=== PATIENT | female | born 1935 | race American Indian/Alaskan Native ===

== ENCOUNTER 2016-09-08 11:25 | Emergency (ER) | payer MEDICARE ==
[2016-09-08 12:05] LABS: Basophils % (Auto) 0.4 % (0.0-1.8); Eosinophils % (Auto) 0.3 % (0.0-4.3); Hematocrit 42.5 % (30.3-42.9); Hemoglobin 13.9 gm/dl (10.1-14.3); Mean Corpuscular HGB Conc 33 % (30-34); Mean Corpuscular Hemoglobin 32 pg (28-32); Mean Corpuscular Volume 96 fl (79-97); Platelet Count 272 K/mm3 (140-440); Red Blood Count 4.41 M/mm3 (3.65-5.03); Red Cell Distribution Width 13.3 % (13.2-15.2); White Blood Count 12.9 K/mm3 (4.5-11.0)
--- NOTE | 2016-09-08 12:10 | Cat Scan Report ---
CT HEAD WITHOUT CONTRAST: HISTORY: Stroke. Technique: Sequential CT images without contrast. Hyperdense left MCA is suspected consistent with thrombosis. The remaining cerebral vessels are grossly normal. The brain parenchyma is within normal limits. There is no evidence for hemorrhage, mass or large area of acute ischemia at this time. No chronic infarct. Ventricular size is within normal limits. The posterior fossa and contents are unremarkable. The mastoid air cells and visualized portions of the sinuses are normal. IMPRESSION: Hyperdense left MCA suggesting left MCA thrombosis. Please correlate with the patient's clinical presentation. No evidence for hemorrhage. These findings were discussed with Dr. Palmer in the emergency department at 1205 hrs.
[2016-09-08 12:11] LABS: INR 1.05 (0.87-1.13)
[2016-09-08 12:16] LABS: Partial Thromboplastin Time 24.6 Sec. (24.2-36.6)
--- NOTE | 2016-09-08 12:26 | Emergency Department Report ---
ED General Adult HPI - General Chief complaint: Neuro Symptoms/Deficit Stated complaint: STROKE Time Seen by Provider: 09/08/16 11:58 Source: EMS Mode of arrival: Stretcher Limitations: Altered Mental Status - Related Data Allergies Allergy/AdvReac Type Severity Reaction Status Date / Time Penicillins Allergy Rash Verified 09/08/16 11:32 ED Review of Systems ROS: Stated complaint: STROKE Other details as noted in HPI ED Past Medical Hx - Past Medical History Hx Hypertension: Yes - Surgical History Hx Pacemaker: Yes - Social History Smoking Status: Unknown if ever smoked Substance Use Type: None ED Physical Exam - General Limitations: Altered Mental Status ED Course Vital Signs 09/08/16 12:00 Pulse Rate 100 H Respiratory 20 Rate Blood Pressure 178/75 [Right] O2 Sat by Pulse 100 Oximetry ED Medical Decision Making - Lab Data Result diagrams: 09/08/16 11:39 Laboratory Results - last 24 hr 09/08/16 09/08/16 11:39 11:39 WBC 12.9 H RBC 4.41 Hgb 13.9 Hct 42.5 MCV 96 MCH 32 MCHC 33 RDW 13.3 Plt Count 272 Lymph % (Auto) 7.9 L [place] % (Auto) 4.8 Eos % (Auto) 0.3 Baso % (Auto) 0.4 Lymph # 1.0 L [place] # 0.6 Eos # 0.0 Baso # 0.1 Seg Neutrophils % 86.6 H Seg Neutrophils # 11.2 H PT 13.6 INR 1.05 APTT 24.6 Critical care attestation.: If time is entered above; I have spent that time in minutes in the direct care of this critically ill patient, excluding procedure time. ED Disposition Condition: Stable Referrals: PRIMARY CARE [Primary Care Provider] - 3-5 Days
--- NOTE | 2016-09-08 12:34 | Admit Criteria Form ---
Admission Criteria Documentation: STROKE: ISCHEMIC Clinical Indications for Admission to Inpatient Care (Place 'X' for any and all applicable criteria): Admission is indicated for ANY ONE of the following(1)(2)(3)(4): [X ]I. Acute stroke Extended stay beyond goal length of stay may be needed for(1)(2) [ ]a) Major deficit or clinical deterioration [ ]b) Hospital-acquired infection (eg, urinary tract infection, pneumonia) [ ]c) Embolic cause of stroke [ ]d) Venous thromboembolism(9) [ ]e) Seizures [ ]f) Bleeding (eg, cerebral) [ ]g) Increased intracranial pressure [ ]h) Comorbidities [ ]i) Surgical intervention The original [facility] content created by [employer] has been revised. The portions of the content which have been revised are identified through the use of italic text or in bold, and [facility] has neither reviewed nor approved the modified material. All other unmodified content is copyright [facility] [place] [place] [facility] by [employer]. Please see references footnoted in the original [facility] [place] [place] [employer] edition 2016
--- NOTE | 2016-09-08 12:38 | Emergency Department Report ---
ED Neuro Deficit HPI - General Chief Complaint: Neuro Symptoms/Deficit Stated Complaint: STROKE Time Seen by Provider: 09/08/16 11:58 Source: EMS Mode of arrival: Stretcher Limitations: Altered Mental Status - History of Present Illness Initial Comments: Patient's last known well time was 11 PM last night when she was able to speak clearly and walk unassisted. At about 10:00 this morning the patient was unable to get out of bed. She was able to tell the family that she did not want to go to the hospital. By 10:30 the family apparently noted that she was unable to move her right side when she attempted to get out of bed and fell. Family feels that likely she was weak in the right side since she woke up this morning. Paramedics found the patient to have a blood pressure of 180/120 in the field. She was transported for evaluation of stroke symptoms. According to the family she had no specific complaint. -: During the night Location: speech, right face, right arm, right leg Presenting Symptoms: Present: Weak/Paralyzed One Side History of same: No Place: home Severity: severe Quality: weak Improves With: none Worsens With: none On Anticoagulants: No Context: other Associated Symptoms: other (unable to communicate unable to communicate) Treatments Prior to Arrival: none - Related Data Home Medications: Home Medications Medication Instructions Recorded Confirmed Last Taken Carvedilol [Coreg] 3.125 mg PO BID 09/08/16 09/08/16 09/07/16 Furosemide [Lasix] 20 mg PO BID 09/08/16 09/08/16 09/07/16 Levothyroxine [Synthroid] 75 mcg PO QAM 09/08/16 09/08/16 09/07/16 Lisinopril [Zestril TAB] 10 mg PO QDAY 09/08/16 09/08/16 09/07/16 Multivit-Min/Iron Fum/Folic AC 1 each PO DAILY 09/08/16 09/08/16 09/07/16 [[id number]-Bmiyxfn-Qzjizucp Tablet] Potassium Chloride [K-Dur] 20 meq PO QDAY 09/08/16 09/08/16 09/07/16 Allergies/Adverse Reactions: Allergies Allergy/AdvReac Type Severity Reaction Status Date / Time Penicillins Allergy Rash Verified 09/08/16 11:32 ED Review of Systems ROS: Stated complaint: STROKE Other details as noted in HPI Comment: Unobtainable due to pts medical conditions ED Past Medical Hx - Past Medical History Hx Hypertension: Yes - Surgical History Hx Pacemaker: Yes - Social History Smoking Status: Unknown if ever smoked Substance Use Type: None - Medications Home Medications: Home Medications Medication Instructions Recorded Confirmed Last Taken Type Carvedilol [Coreg] 3.125 mg PO BID 09/08/16 09/08/16 09/07/16 History Furosemide [Lasix] 20 mg PO BID 09/08/16 09/08/16 09/07/16 History Levothyroxine [Synthroid] 75 mcg PO QAM 09/08/16 09/08/16 09/07/16 History Lisinopril [Zestril TAB] 10 mg PO QDAY 09/08/16 09/08/16 09/07/16 History Multivit-Min/Iron Fum/Folic AC 1 each PO DAILY 09/08/16 09/08/16 09/07/16 History [Zelrq-[id number]-Zofcshxc Tablet] Potassium Chloride [K-Dur] 20 meq PO QDAY 09/08/16 09/08/16 09/07/16 History ED Neuro Physical Exam - General Limitations: Language Barrier, Altered Mental Status General appearance: lethargic Suspected Stroke: Yes - Head Head exam: Present: atraumatic - Eye Eye exam: Present: PERRL, other (there might be a slight left orbital ecchymosis which does not appear to be acute). Absent: EOMI (patient his head is unable to look fully to the right) - ENT ENT exam: Present: normal exam - Neck Neck exam: Present: normal inspection. Absent: tenderness, meningismus - Respiratory Respiratory exam: Present: normal lung sounds bilaterally. Absent: respiratory distress - Cardiovascular Cardiovascular Exam: Present: regular rate, normal rhythm. Absent: systolic murmur, diastolic murmur, rubs, gallop - GI/Abdominal GI/Abdominal exam: Present: soft, normal bowel sounds. Absent: distended, tenderness, guarding, rebound, rigid - Extremities Exam Extremities exam: Present: normal inspection - Back Exam Back exam: Present: normal inspection - Neurological Exam Neurological exam: Present: motor sensory deficit. Absent: CN II-XII intact - NIHSS Assessment Interval: Baseline 1a. Level of Consciousness: not alert, arousable 1b. LOC Questions: answers no questions correctly 1c. LOC Commands: performs no tasks correctly 2. Best Gaze: partial gaze palsy 3. Visual: no visual loss 4. Facial Palsy: partial paralysis 5b. Motor Arm Right: no gravity effort 5a. Motor Arm Left: no drift 6a. Motor Leg Left: no drift 6b. Motor Leg Right: no gravity effort 7. Limb Ataxia: absent 8. Sensory: mild/moderate sensory loss 9. Best Language: mild/moderate aphasia 10. Dysarthria: mild/moderate dysarthria 11. Extinction/Inattention: visual/tactile inattention Total Score: 18 Stroke Severity: Moderate to Severe Stroke - Psychiatric Psychiatric exam: Present: normal mood, flat affect - Skin Skin exam: Present: warm, dry, intact, normal color. Absent: rash ED Course Vital Signs 09/08/16 12:00 Pulse Rate 100 H Respiratory 20 Rate Blood Pressure 178/75 [Right] O2 Sat by Pulse 100 Oximetry - Reevaluation(s) Reevaluation #1: I spoke to the stroke neurologist Dr. Wheat at [facility] shortly after my patient encounter. I thought the patient might be a candidate for the "out of the window" protocol as her cerebral cortex does look normal and she has a stroke score of 18 with a long hyperdense MCA sign. Dr. Wheat agreed. She will be sent via air ambulance to [facility] for expeditious evaluation for possible thrombectomy. This has been explained to the patient. Dr. Wheat will call M and discuss eligibility criteria and indications after the laboratory database is available I presume. We are still waiting on the patient's creatinine. 09/08/16 12:49 - Lab Data Result diagrams: 09/08/16 11:39 Lab Results 09/08/16 09/08/16 Range/Units 11:39 11:39 WBC 12.9 H (4.5-11.0) K/mm3 RBC 4.41 (3.65-5.03) M/mm3 Hgb 13.9 (10.1-14.3) gm/dl Hct 42.5 (30.3-42.9) % MCV 96 (79-97) fl MCH 32 (28-32) pg MCHC 33 (30-34) % RDW 13.3 (13.2-15.2) % Plt Count 272 (140-440) K/mm3 Lymph % (Auto) 7.9 L (13.4-35.0) % [place] % (Auto) 4.8 (0.0-7.3) % Eos % (Auto) 0.3 (0.0-4.3) % Baso % (Auto) 0.4 (0.0-1.8) % Lymph # 1.0 L (1.2-5.4) K/mm3 [place] # 0.6 (0.0-0.8) K/mm3 Eos # 0.0 (0.0-0.4) K/mm3 Baso # 0.1 (0.0-0.1) K/mm3 Seg Neutrophils % 86.6 H (40.0-70.0) % Seg Neutrophils # 11.2 H (1.8-7.7) K/mm3 PT 13.6 (12.2-14.9) Sec. INR 1.05 (0.87-1.13) APTT 24.6 (24.2-36.6) Sec. Laboratory Results - last 24 hr 09/08/16 09/08/16 11:39 11:39 WBC 12.9 H RBC 4.41 Hgb 13.9 Hct 42.5 MCV 96 MCH 32 MCHC 33 RDW 13.3 Plt Count 272 Lymph % (Auto) 7.9 L [place] % (Auto) 4.8 Eos % (Auto) 0.3 Baso % (Auto) 0.4 Lymph # 1.0 L [place] # 0.6 Eos # 0.0 Baso # 0.1 Seg Neutrophils % 86.6 H Seg Neutrophils # 11.2 H PT 13.6 INR 1.05 APTT 24.6 Laboratory Results - last 24 hr 09/08/16 09/08/16 09/08/16 11:39 11:39 11:39 WBC 12.9 H RBC 4.41 Hgb 13.9 Hct 42.5 MCV 96 MCH 32 MCHC 33 RDW 13.3 Plt Count 272 Lymph % (Auto) 7.9 L [place] % (Auto) 4.8 Eos % (Auto) 0.3 Baso % (Auto) 0.4 Lymph # 1.0 L [place] # 0.6 Eos # 0.0 Baso # 0.1 Seg Neutrophils % 86.6 H Seg Neutrophils # 11.2 H PT 13.6 INR 1.05 APTT 24.6 Sodium 142 Potassium 4.4 Chloride 105.3 Carbon Dioxide 21 L Anion Gap 20 BUN 14 Creatinine 0.7 Estimated GFR > 60 BUN/Creatinine Ratio 20.00 Glucose 125 H Calcium 8.9 Troponin T 0.027 - EKG Data -: EKG Interpreted by Me Rate: normal Paced 09/08/16 12:40 Critical Care Time: Yes Critical care time in (mins) excluding proc time.: 45 Critical care attestation.: If time is entered above; I have spent that time in minutes in the direct care of this critically ill patient, excluding procedure time. ED Disposition Clinical Impression: CVA (cerebral vascular accident) Qualifiers: CVA mechanism: thrombosis Precerebral and cerebral artery: middle cerebral artery Laterality of affected vessel: left Qualified Code(s): I63.312 - Cerebral infarction due to thrombosis of left middle cerebral artery Disposition: DC/TX-70 ANOTHER TYPE HLTHCARE Is pt being admited?: No Does the pt Need Aspirin: No (defer to [facility]. Patient nothing by mouth now.) Condition: Stable Referrals: PRIMARY CARE, [Primary Care Provider] - 3-5 Days Time of Disposition: 12:53
[2016-09-08 12:43] LABS: Anion Gap 20 mmol/L; Blood Urea Nitrogen 14 mg/dL (7-17); Calcium 8.9 mg/dL (8.4-10.2); Carbon Dioxide 21 mmol/L (22-30); Chloride 105.3 mmol/L (98-107); Glucose 125 mg/dL (65-100); Potassium 4.4 mmol/L (3.6-5.0); Sodium 142 mmol/L (137-145)
[2016-09-08 13:09] VITALS: BP 151/101
== END 2016-09-08 13:14 | disposition other institution (70) ==
LOC: ED 11:25
DX: I63.312 Cerebral infarction due to thrombosis of left middle cerebral artery (principal); I10 Essential (primary) hypertension
CPT/HCPCS: 36415; 70450; 80048; 84484; 85025; 85610; 85670; 85730; 93005; 93010